=== PATIENT | female | born 1965 | race Caucasian/White ===

== ENCOUNTER 2023-10-30 09:34 | Outpatient (AMB) | payer OTHER, SELFPAY ==
--- NOTE | 2023-10-30 09:42 | HO.NEPHOV ---
HPI Hypertension (Cardio) Most Recent Cardiac Tests: No Data to Display HPI Comments History of Present Illness Details I had the privilege of seeing Sherice in follow-up of her hypertension. She has been feeling well. She has been compliant with her medication. He has gained some weight. She does not have any headache, visual disturbances, chest pain, shortness of breath, proximal nocturnal dyspnea, orthopnea, pedal edema, hematuria or any side effects from her medications. She tries to be compliant with low-sodium diet. She avoids nonsteroidal anti-inflammatory medication and try to keep herself well hydrated. Her serum creatinine and potassium has been at baseline. She has not had any renal calculi for many years. [facility] Medical History (Updated 10/30/23 @ 10:12 by Andre Shanks MD) Chronic kidney disease Essential (primary) hypertension Renal stone Family History Father Hypertension Social History (Updated 10/30/23 @ 09:49 by Chantal Sparks MA) Alcohol intake: never Patient Tobacco Use Status: Never used Tobacco Vital Signs 10/30/23 09:43 Height 5 ft 3 in Weight 202 lb BMI 35.8 BP 122/86 Blood Pressure Location Lt brachial Position Sitting Pulse 80 Pulse Source Pulse Oximeter Physical Exam Vital Signs: Last Vital Signs Pulse 80 10/30/23 09:43 BP 122/86 10/30/23 09:43 BMI result Body Mass Index 35.8 Const General: comfortable and no acute distress Orientation/consciousness: patient oriented x3 HEENT Head: Yes normocephalic Mouth: Normal oral and palatal mucosa present Eyes EOM: EOMs intact bilaterally Neck Neck: Yes supple Resp Auscultation: clear to auscultation bilaterally Cardio Jugular venous distension: no JVD Rate: regular rate GI Palpation (GI): Soft to palpation Auscultation: normal bowel sounds General: Yes no CVA tenderness Back/Spine/Pelvis Back: no CVA tenderness Skin General skin exam: no rashes or lesions noted Neuro General: patient oriented x3 and moves all extremities Extrem General: Yes no pedal edema Assessment & Plan Assessment & Plan (1) Hypertension: Code(s): I10 - Essential (primary) hypertension Qualifiers: Hypertension type: primary hypertension Qualified Code(s): I10 - Essential (primary) hypertension (2) Renal stone: Code(s): N20.0 - Calculus of kidney (3) Essential (primary) hypertension: Code(s): I10 - Essential (primary) hypertension Adam Smiley has longstanding hypertension which is well controlled on current medication regimen. She is compliant. Her serum potassium and renal functions are normal. She is not known to have any proteinuria, retinopathy or known vascular disease. She needs to lose some weight and should continue lifestyle modifications. She avoids nonsteroidal anti-inflammatory medications and maintains good hydration. She has not had any renal calculi. If she has to have renal stone, I am inclined to start her on thiazides and or potassium citrate after a 24 hour urine collection. She may need a follow-up renal ultrasound to ensure she does not have any kidney stone which I shall arrange in her subsequent visits in a year's time. I answered all questions. Follow-up urine studies and blood work ordered and follow-up given. Orders: Orders Creatinine 10/30/23 I10 - Essential (primary) hypertension, N20.0 - Calculus of kidney Electrolytes 10/30/23 I10 - Essential (primary) hypertension, N20.0 - Calculus of kidney Protein Creatinine Ratio, Ur 10/30/23 I10 - Essential (primary) hypertension, N20.0 - Calculus of kidney Blood Urea Nitrogen 10/30/23 I10 - Essential (primary) hypertension, N20.0 - Calculus of kidney Coding Level of Care Code Est Pt Level 4 (53218) Diagnoses Primary hypertension I10 Hypertension type: primary hypertension Renal stone N20.0 Essential (primary) hypertension I10 Results Reviewed Nephrology Results: No Data to Display
[2023-10-30 09:43] VITALS: BP 122/86; PULSE 80; BMI 35.8
== END 2023-10-30 10:18 | disposition home or self-care (01) ==
PROVIDERS: PCP Family Medicine; Visit Provider Internal Medicine Nephrology
DX: I10 Essential (primary) hypertension (principal); N20.0 Calculus of kidney
CPT/HCPCS: 99214

== ENCOUNTER → 2023-10-30 09:34 | Outpatient (BNVA) | payer OTHER, SELFPAY | PROVIDERS: PCP Family Medicine; Visit Provider Internal Medicine Nephrology ==

== ENCOUNTER 2024-11-06 14:12 | Outpatient (AMB) | payer OTHER, SELFPAY ==
--- NOTE | 2024-11-06 14:25 | HO.NEPHOV_ITS ---
Vital Signs 11/06/24 14:26 Height 5 ft 4 in Weight 215 lb BMI 36.9 BP 150/90 H Blood Pressure Location Lt brachial Position Sitting Pulse 76 Pulse Source Pulse Oximeter Pulse Oximetry (%) 95 Oxygen Delivery Method Room Air Intake Visit Reasons: 1Y follow up Patient Relations Coordinator Required: No Accompanied by: Self / Same As Patient Allergies No Known Allergies Allergy (Verified 11/06/24 14:27) HPI Comments Details: Sherice was seen in follow-up of her hypertension. She has been feeling well. She has been compliant with her medication. She does not have any headache, visual disturbances, chest pain, shortness of breath, proximal nocturnal dyspnea, orthopnea, pedal edema, hematuria or any side effects from her medications. She tries to be compliant with low-sodium diet. She avoids nonsteroidal anti-inflammatory medication and try to keep herself well hydrated. Her serum creatinine and potassium has been at baseline. She has not had any renal calculi for many years. [facility] Medical History (Updated 10/30/23 @ 10:12 by Andre Shanks MD) Chronic kidney disease Essential (primary) hypertension Renal stone Family History Father Hypertension Social History Alcohol intake: never Patient Tobacco Use Status: Never used Tobacco Review of Systems Const All systems reviewed & are unremarkable except as noted in HPI and below Physical Exam Vital Signs: Last Vital Signs Pulse 76 11/06/24 14:26 BP 154/100 H 11/06/24 14:26 Pulse Ox 95 11/06/24 14:26 Oxygen Delivery Method Room Air 11/06/24 14:26 BMI result Body Mass Index 36.9 Const General: comfortable and no acute distress Orientation/consciousness: patient oriented x3 HEENT Head: Yes normocephalic Mouth: Normal oral and palatal mucosa present Eyes EOM: EOMs intact bilaterally Neck Neck: Yes supple Resp Auscultation: clear to auscultation bilaterally Cardio Jugular venous distension: no JVD Rate: regular rate GI Palpation (GI): Soft to palpation Auscultation: normal bowel sounds General: Yes no CVA tenderness Back/Spine/Pelvis Back: no CVA tenderness Skin General skin exam: no rashes or lesions noted Neuro General: patient oriented x3 and moves all extremities Extrem General: Yes no pedal edema Results Reviewed Nephrology Results: No Data to Display Assessment & Plan Assessment & Plan (1) Essential (primary) hypertension: Code(s): I10 - Essential (primary) hypertension Category: Medical (2) Renal stone: Code(s): N20.0 - Calculus of kidney Category: Medical Plan Sherice has longstanding hypertension which is not well controlled on current medication regimen. She is compliant. Her serum potassium and renal functions are normal. She is not known to have any proteinuria, retinopathy or known vascular disease. She needs to lose some weight and should continue lifestyle modifications. She avoids nonsteroidal anti-inflammatory medications and maintains good hydration. She has not had any renal calculi. I increased her losartan to 100 mg and C/W current dose of metoprolol. If she has to have renal stone, I am inclined to start her on thiazides and or potassium citrate after a 24 hour urine collection. She may need a follow-up renal ultrasound to ensure she does not have any kidney stone which I shall arrange in her subsequent v isits in a year's time. I answered all questions. Follow-up urine studies and blood work ordered and follow-up given. Medications: Changed From losartan 50 mg PO BEDTIME 90 tabs 4RF To losartan 100 mg (2 x 50 mg) PO BEDTIME 90 days 180 tabs 4RF Coding Level of Care Code Est Pt Level 4 (89934) Diagnoses Essential (primary) hypertension I10 Renal stone N20.0
[2024-11-06 14:26] VITALS: BP 150/90; PULSE 76; O2SAT 95; BMI 36.9
== END 2024-11-06 14:54 | disposition home or self-care (01) ==
PROVIDERS: PCP Family Medicine; Visit Provider Internal Medicine Nephrology
DX: I10 Essential (primary) hypertension (principal); N20.0 Calculus of kidney
CPT/HCPCS: 99214

== ENCOUNTER 2025-03-12 09:14 | Outpatient (REF) | payer OTHER, SELFPAY ==
--- OUTSIDE RECORDS SUMMARY | 2025-03-12 10:48 | XMS_ITS | Clinical Summary ---
Author Organization [facility] Facility Address [address] [address] Care Team Providers Care Assembler Arranger Name Role Phone Case, Gary Orlando BARRERA Primary Care Provider [phone] Medications metoprolol succinate XL (TOPROL-XL) 50 MG [...] patient's age to complete this topic Insurance [facility] Care Teams Assembler Arranger Relationship Specialty Start Date End Date Elia Case DO [address] [place] [address] PCP - General 11/29/20
[2025-03-12 18:09] LABS: Anion Gap 12 (12-20); Blood Urea Nitrogen 21 mg/dL (9-16); Carbon Dioxide 25 mmol/L (22-29); Chloride 107 mmol/L (96-108); Estimated Glomerular Filt Rate > 60; Potassium 4.9 mmol/L (3.3-5.1); Sodium 139 mmol/L (135-145)
== END 2025-03-12 09:15 | disposition home or self-care (01) ==
LOC: HO.HKASLDS 09:14
PROVIDERS: PCP Family Medicine; Visit Provider Internal Medicine Nephrology
DX: I10 Essential (primary) hypertension (principal)
CPT/HCPCS: 36415; 80051; 82565; 84520

== ENCOUNTER 2025-03-12 09:14 | Outpatient (AMB) | payer OTHER, SELFPAY ==
--- NOTE | 2025-03-12 09:19 | HO.NEPHOV_ITS ---
Vital Signs 03/12/25 09:20 Height 5 ft 4 in Weight 219 lb BMI 37.6 BP 130/84 Blood Pressure Location Rt brachial Position Sitting Pulse 76 Pulse Source Pulse Oximeter Pulse Oximetry (%) 96 Oxygen Delivery Method Room Air Intake Visit Reasons: 3mon follow up w/labs Chemistry Intern Required: No Accompanied by: Self / Same As Patient Allergies No Known Allergies Allergy (Verified 03/12/25 09:20) HPI Comments Details: Sherice was seen in follow-up of her hypertension. She has been feeling well. She has been compliant with her medication. She does not have any headache, visual disturbances, chest pain, shortness of breath, proximal nocturnal dyspnea, orthopnea, pedal edema, hematuria or any side effects from her medications. She tries to be compliant with low-sodium diet. She avoids nonsteroidal anti-inflammatory medication and try to keep herself well hydrated. Her serum creatinine and potassium has been at baseline. She has not had any renal calculi for many years. [facility] Medical History (Updated 10/30/23 @ 10:12 by Andre Shanks MD) Chronic kidney disease Essential (primary) hypertension Renal stone Family History Father Hypertension Social History Alcohol intake: never Patient Tobacco Use Status: Never used Tobacco Review of Systems Const All systems reviewed & are unremarkable except as noted in HPI and below Physical Exam Const General: comfortable and no acute distress Orientation/consciousness: patient oriented x3 HEENT Head: Yes normocephalic Mouth: Normal oral and palatal mucosa present Eyes EOM: EOMs intact bilaterally Neck Neck: Yes supple Resp Auscultation: clear to auscultation bilaterally Cardio Jugular venous distension: no JVD Rate: regular rate GI Palpation (GI): Soft to palpation Auscultation: normal bowel sounds General: Yes no CVA tenderness Back/Spine/Pelvis Back: no CVA tenderness Skin General skin exam: no rashes or lesions noted Neuro General: patient oriented x3 and moves all extremities Extrem General: Yes no pedal edema Results Reviewed Nephrology Results: No Data to Display Assessment & Plan Assessment & Plan (1) Essential (primary) hypertension: Code(s): I10 - Essential (primary) hypertension Category: Medical (2) Renal stone: Code(s): N20.0 - Calculus of kidney Category: Medical Plan Sherice has longstanding hypertension which is not well controlled on current medication regimen. She is compliant with medications. Her serum potassium and renal functions are normal. She is not known to have any proteinuria, retinopathy or known vascular disease. She needs to lose some weight and should continue lifestyle modifications. She avoids nonsteroidal anti-inflammatory medications and maintains good hydration. She has not had any renal calculi. I increased her losartan to 100 mg and C/W current dose of metoprolol which is keeping her BP at goal. If she has to have renal stone, I am inclined to start her on thiazides and or potassium citrate after a 24 hour urine collection. She may need a follow-up renal ultrasound to ensure she does not have any kidney stone which I shall arrange in her subsequent visits in a year's time. Follow- up urine studies and blood work ordered and follow-up given. Orders: Orders Electrolytes Today I10 - Essential (primary) hypertension Blood Urea Nitrogen Today I10 - Essential (primary) hypertension Creatinine Today I10 - Essential (primary) hypertension Coding Level of Care Code Est Pt Level 4 (60754) Diagnoses Essential (primary) hypertension I10 Renal stone N20.0
[2025-03-12 09:20] VITALS: BP 130/84; PULSE 76; O2SAT 96; BMI 37.6
--- OUTSIDE RECORDS SUMMARY | 2025-03-12 10:00 | XMS_ITS | Clinical Summary ---
Author Organization [facility] Facility Address [address] [address] Care Team Providers Care Professor Of Poultry Science Name Role Phone Case, Gary Orlando BARRERA Primary Care Provider [phone] Medications metoprolol succinate XL (TOPROL-XL) 50 MG 24 hr tablet Take 1.5 tablets by mouth 1 (one) time each day Active losartan (COZAAR) 50 MG tablet TAKE ONE TABLET BY MOUTH AT BEDTIME 90 tablet 08/21/2023 Active Active Problems Problem Noted Date Diagnosed Date Chronic kidney disease stage 1 01/13/2021 Essential hypertension 01/13/2021 Hypertensive renal disease 01/13/2021 Renal stone 01/13/2021 Family History Medical History Relation Comments Hypertension Father Relation Status Comments Father Mother Alive Social History Tobacco Use Types Packs/Day Years Used Date Smoking Tobacco: Never Smokeless Tobacco: Never Alcohol Use Standard Drinks/Week Comments Yes 0 (1 standard drink = 0.6 oz pure alcohol) Alcoholic Drinks/day: Occasional social drink Comments Unknown Sex and Gender Information Value Date Recorded Sex Assigned at Not on file Legal Sex Female 5:24 PM EST Gender Identity Not on file Sexual Orientation Not on file Last Filed Vital Signs Vital Sign Reading Time Taken Comments Blood Pressure 120/80 12/25/2019 12:01 PM EST Pulse 72 12/25/2019 12:01 PM EST Temperature - - Respiratory Rate - - Oxygen Saturation 99% 06/23/2019 12:01 PM EDT Inhaled Oxygen Concentration - - Weight 101 kg (223 lb) 12/25/2019 12:01 PM EST Height 162.6 cm (5' 4 ) 12/25/2019 12:01 PM EST Body Mass Index 38.28 12/25/2019 12:01 PM EST Plan of Treatment Health Maintenance Due Date Last Done Comments Breast Cancer Screening 1965 Pneumococcal Vaccine: 50+ Ye ars (1 of 2 - PCV) 1982 Colorectal Cancer Screening: Annual FOBT 2012 Colorectal Cancer Screening: Colonoscopy 2012 Colorectal Cancer Screening: Sigmoidoscopy 2012 Influenza Vaccine (Season Ended) 2025 Hepatitis B Vaccine Aged Out No longe r eligible based on patient's age to complete this topic Insurance [facility] Care Teams Professor Of Poultry Science Relationship Specialty Start Date End Date Elia Case DO [address] [place] [address] PCP - General 11/29/20
== END 2025-03-12 12:59 | disposition home or self-care (01) ==
PROVIDERS: PCP Family Medicine; Visit Provider Internal Medicine Nephrology
DX: I10 Essential (primary) hypertension (principal); N20.0 Calculus of kidney
CPT/HCPCS: 99214

== ENCOUNTER 2025-09-03 15:46 | Outpatient (AMB) | payer OTHER, SELFPAY ==
--- NOTE | 2025-09-03 16:19 | HO.NEPHOV_ITS ---
Vital Signs 09/03/25 16:22 Height 5 ft 4 in Weight 220 lb BMI 37.8 BP 132/80 Blood Pressure Location Lt brachial Position Sitting Pulse 85 Pulse Source Pulse Oximeter Pulse Oximetry (%) 96 Oxygen Delivery Method Room Air Intake Visit Reasons: 6mon [id number] Opal Polisher Required: No Accompanied by: Self / Same As Patient Allergies No Known Allergies Allergy (Verified 09/03/25 16:22) HPI Comments Details: Sherice was seen in follow-up of her hypertension. She has been compliant with her medication. She does not have any headache, visual disturbances, chest pain, shortness of breath, proximal nocturnal dyspnea, orthopnea, pedal edema, hematuria or any side effects from her medications. She tries to be compliant with low-sodium diet. She avoids nonsteroidal anti-inflammatory medication and try to keep herself well hydrated. Her serum creatinine and potassium has been at baseline. She has not had any renal calculi for many years but lately has been having right flank pain. COUNT [facility]CLUDES [facility] Medical History (Updated 09/03/25 @ 20:50 by Andre Shanks MD) Chronic kidney disease Essential (primary) hypertension Renal stone Family History Father Hypertension Social History Alcohol intake: never Patient Tobacco Use Status: Never used Tobacco Review of Systems Const All systems reviewed & are unremarkable except as noted in HPI and below Physical Exam Vital Signs: Last Vital Signs Pulse 85 09/03/25 16:22 BP 132/80 09/03/25 16:22 Pulse Ox 96 09/03/25 16:22 Oxygen Delivery Method Room Air 09/03/25 16:22 BMI result Body Mass Index 37.8 Const General: comfortable and no acute distress Orientation/consciousness: patient oriented x3 HEENT Head: Yes normocephalic Mouth: Normal oral and palatal mucosa present Eyes EOM: EOMs intact bilaterally Neck Neck: Yes supple Resp Auscultation: clear to auscultation bilaterally Cardio Jugular venous distension: no JVD Rate: regular rate GI Palpation (GI): Soft to palpation Auscultation: normal bowel sounds General: Yes no CVA tenderness Back/Spine/Pelvis Back: no CVA tenderness Skin General skin exam: no rashes or lesions noted Neuro General: patient oriented x3 and moves all extremities Extrem General: Yes no pedal edema Assessment & Plan Assessment & Plan (1) Renal stone: Code(s): N20.0 - Calculus of kidney Category: Medical (2) Essential (primary) hypertension: Code(s): I10 - Essential (primary) hypertension Category: Medical (3) Flank pain: Code(s): R10.A0 - Flank pain, unspecified side Category: Medical Qualifiers: Laterality: right Qualified Code(s): R10.A1 - Flank pain, right side Plan Sherice has longstanding hypertension which is not well controlled on current medication regimen. She is compliant with medications. Her serum potassium and renal functions had been normal. She is not known to have any proteinuria, retinopathy or known vascular disease. She needs to lose some weight and should continue lifestyle modifications. She avoids nonsteroidal anti-inflammatory medications and maintains good hydration. She has not had any renal calculi but given right flank pain, I ordered a renal USS . She should continue current dose of losartan and metoprolol which is keeping her BP at goal. If she has to have renal stone, I am inclined to start her on thiazides and or potassium citrate after a 24 hour urine collection. Follow-up blood work ordered and follow-up given. Orders: Orders Blood Urea Nitrogen 1 Year I10 - Essential (primary) hypertension, N20.0 - Calculus of kidney US renal BI 2 Weeks R10.A0 - Flank pain, unspecified side Creatinine 1 Year I10 - Essential (primary) hypertension, N20.0 - Calculus of kidney Electrolytes 1 Year I10 - Essential (primary) hypertension, N20.0 - Calculus of kidney Coding Level of Care Code Est Pt Level 4 (61471) Diagnoses Renal stone N20.0 Essential (primary) hypertension I10 Right flank pain R10.A1 Laterality: right
[2025-09-03 16:22] VITALS: BP 132/80; PULSE 85; O2SAT 96; BMI 37.8
--- OUTSIDE RECORDS SUMMARY | 2025-09-03 19:28 | XMS_ITS | Clinical Summary ---
Author Organization [facility] Address [address] [place] [address] Phone Care Team Providers Care Amf Mechanic Name Role Phone Elia Case DO Primary Care Provider [phone] Allergies No known active allergies Medications losartan (COZAAR) 50 mg tablet Take 1 tablet (50 mg total) by mouth 1 (one) time each day. Active SUMAtriptan (IMITREX) 50 mg tablet Take 1 tablet (50 mg total) by mouth 1 (one) time if needed for migraine. May repeat dose once in 2 hours if no relief. Do not exceed 2 doses in 24 hours. Active polyethylene glycol (Golytely) 236-22.74-6.74 -5.86 gram solution Take 4L by mouth once for one dose. May substitue any PEG. Starting at 2PM the day before your procedure drink 1 8oz glasses at your own pace until you complete half of the gallon. Finish 2nd half of the gallon at 8PM. 4000 mL 5 Active bisacodyL (DULCOLAX) 5 mg EC tablet Take 2 tablets by mouth right before beginning bowel prep. See instructions provided by the office 2 tablet 5 Active metoprolol succinate (TOPROL-XL) 50 mg 24 hr tablet 5 Active omega 9-pyu-enk-fish oil (Fish OiL) 1,000 (120-180) mg capsule Active multivitamin tablet Take 1 tablet by mouth 1 (one) time each day. Active Encounters Date Type Department Care Team Description 06/10/2025 Telephone Gastroenterology - [address] [phone] Deborahdonovanslaazar ZainaRAFITA 06/09/2025 7:43 AM EDT Anesthesia Event [facility] [address] [place] [phone] Eliot Ortega MD 06/09/2025 6:53 AM EDT - 06/09/2025 11:59 PM EDT Hospital Encounter [facility] [address] [place] [phone] Jenna Keith MD Elliott, Barbara J, CRNA Colon cancer screening Discharge Disposition: Home or Self Care from Last 3 Months Surgical History Surgery Date Site/Laterality Comments TUBAL LIGATION COLONOSCOPY Medical History Medical History Date Comments Malignant neoplasm of skin of face ? DX:Malignant neoplasm of skin of face; COMMENT: Right forearm Hypertension Migraines Family History Medical History Relation Name Comments Basal cell carcinoma Father Basal cell carcinoma Sister Relation Name Status Comments Father Sister Social History Tobacco Use Types Packs/Day Years Used Date Smoking Tobacco: Never Smokeless Tobacco: Never Alcohol Use Standard Drinks/Week Comments Yes 0 (1 standard drink = 0.6 oz pur e alcohol) Interpersonal Safety Answer Date Record ed Physical Abuse Unrecognized value 06/09/2025 Verbal Abuse Unrecognized value 06/09/2025 Comments No Sex and Gender Information Value Date Recorded Sex Assigned at Not on file Legal Sex Female 11:25 PM EST Gender Identity Not on file Sexual Orientation Not on file Obstetrics History Last Filed Vital Signs Vital Sign Reading Time Taken Comments Blood Pressure 109/63 06/09/2025 8:28 AM EDT Pulse 74 06/09/2025 8:28 AM EDT Temperature 36.8 C (98.3 F) 06/09/2025 8:08 AM EDT Respiratory Rate 14 06/09/2025 8:28 AM EDT Oxygen Saturation 96% 06/09/2025 8:28 AM EDT Inhaled Oxygen Concentration - - Weight 99.8 kg (220 lb) 06/09/2025 7:21 AM EDT Height 162.6 cm (5' 4 ) 06/09/2025 7:21 AM EDT Body Mass Index 37.76 06/09/2025 7:21 AM EDT Plan of Treatment Health Maintenance Due Date Last Done Comments Breast Cancer Screening 1965 Zoster Vaccines (1 of 2) 1982 Cervical Cancer Screening: P ap Smear 1984 Pneumococcal Vaccine: 50+ Years (1 of 1 - PCV) 2013 COVID-19 Vaccine (3 - Modern a risk series) 03/24/2021 02/24/2021, 01/26/2021 Depression Screening 11/19/2024 Cholesterol Screening (Lipid Panel) 03/13/2025 HIV Screening 03/13/2025 Hepatitis C Screening 03/13/2025 Hypertension/CHF/CAD Annual BMP Blood Test 03/13/2025 Social Influencers of Health Screening 03/13/2025 Influenza Vaccine (#1) 2025 DTaP,Tdap,and Td Vaccines (2 - Td or Tdap) 07/20/2032 07/20/2022 Colorectal Cancer Screening: Colonoscopy 06/09/2035 06/09/2025 RSV Immunization Adult Patients (1 - 1-dose 75+ series) 2038 HIB Vaccines Aged Out No longer eligi ble based on patient's age to complete this topic HPV Vaccines Aged Out No longer eligi ble based on patient's age to complete this topic Hepatitis A Vaccines Aged Out No long er eligible based on patient's age to complete this topic Hepatitis B Vaccines Aged Out No long er eligible based on patient's age to complete this topic IPV Vaccines Aged Out No longer eligi ble based on patient's age to complete this topic MMR Vaccines Aged Out No longer eligi ble based on patient's age to complete this topic Meningococcal ACWY Vaccine Aged Out N o longer eligible based on patient's age to complete this topic Meningococcal B Vaccine Aged Out No l onger eligible based on patient's age to complete this topic RSV Immunization Patients Under 20 months Aged Out No longer eligible b ased on patient's age to complete this topic Varicella Vaccines Aged Out No longer eligible based on patient's age to complete this topic Procedures Procedure Name Priority Date/Time Associated Diagnosis Comments COLONOSCOPY Routine 06/09/2025 8:07 AM EDT Colon cancer screening TISSUE EXAM Routine 06/09/2025 8:05 AM EDT Colon cancer screening from Last 3 Months Results * COLONOSCOPY Anesthesia - MAC; [facility] ENDOSCOPY (06/09/2025 8:07 AM EDT) Anatomical Region Laterality Modality Other 06/09/2025 7:31 AM EDT Impressions 06/09/2025 8:07 AM EDT - The examined portion of the ileum was normal. - Diverticulosis in the sigmoid colon. - One 2 mm polyp in the rectum, removed with a cold snare. Resected and retrieved. - The examination was otherwise normal on direct and retroflexion views. Recommendation: - Await pathology results. - Repeat colonoscopy in 7-10 years for surveillance based on pathology results. Narrative 06/09/2025 8:07 AM EDT [facility] Patient Name: Sherice Petersen Procedure Date: 06/09/2025 7:31 AM Date of : 1965 Age: 59 Gender: Female Note Status: Finalized Attending MD: Jenna Keith MD, Procedure Date No Time: 06/09/2025 Procedure: Colonoscopy Indications: Screening for colorectal malignant neoplasm Providers: Jenna Keith MD Referring MD: Elia Case MD Medicines: Propofol per Anesthesia Complications: No immediate complications. Estimated Blood Loss: Estimated blood loss: none. Procedure: Pre-Anesthesia Assessment: - ASA Grade Assessment: II - A patient with mild systemic disease. After I obtained informed consent, the scope was passed under direct vision. Throughout the procedure, the patient's blood pressure, pulse, and oxygen saturations were monitored continuously.The Colonoscope was introduced through the anus and advanced to the terminal ileum. The colonoscopy was somewhat difficult due to restricted mobility of the colon. The patient tolerated the procedure well. The quality of the bowel preparation was excellent. Findings: The perianal and digital rectal examinations were normal. The terminal ileum appeared normal. A few small-mouthed diverticula were found in the sigmoid colon. A 2 mm polyp was found in the rectum. The polyp was sessile. The polyp was removed with a cold snare. Resection and retrieval were complete. The exam was otherwise without abnormality on direct and retroflexion views. Procedure Code(s): --- Professional --- 41450, Colonoscopy, flexible; with removal of tumor(s), polyp(s), or other lesion(s) by snare technique Diagnosis Code(s): --- Professional --- Z12.11, Encounter for screening for malignant neoplasm of colon D12.8, Benign neoplasm of rectum CPT copyright 2020 [employer] [place] [employer]. All rights reserved. The codes documented in this report are preliminary and upon physician coder review may be revised to meet current compliance requirements. Jenna Keith MD 06/09/2025 8:07:30 AM This report has been signed electronically.Jenna Keith MD Number of Addenda: 0 Note Initiated On: 06/09/2025 7:31 AM Scope In: Scope Out: Endoscopy Department at [facility] - [address] [place] [phone] Procedure Note Jenna Keith MD - 06/09/2025 [facility] Patient Name: Sherice Petersen Procedure Date: 06/09/2025 7:31 AM Date of : 1965 Age: 59 Gender: Female Note Status: Finalized Attending MD: Jenna Keith MD, Procedure Date No Time: 06/09/2025 Procedure: Colonoscopy Indications: Screening for colorectal malignant neoplasm Providers: Jenna Keith MD Referring MD: Elia Case MD Medicines: Propofol per Anesthesia Complications: No immediate complications. Estimated Blood Loss: Estimated blood loss: none. Procedure: Pre-Anesthesia Assessment: - ASA Grade Assessment: II - A patient with mild systemic disease. After I obtained informed consent, the scope was passed under direct vision. Throughout theprocedure, the patient's blood pressure, pulse, and oxygen saturations were monitored continuously.The Colonoscope was introduced through the anus and advanced to the terminal ileum. The colonoscopy was somewhat difficult due to restricted mobility ofthe colon. The patient tolerated the procedure well.The quality of the bowel preparation was excellent. Findings: The perianal and digital rectal examinations were normal. The terminal ileum appeared normal. A few small-mouthed diverticula were found in the sigmoid colon. A 2 mm polyp was found in the rectum. The polyp was sessile. The polyp was removed with a cold snare. Resection and retrieval were complete. The exam was otherwise without abnormality ondirect and retroflexion views. Procedure Code(s): --- Professional --- 41663, Colonoscopy, flexible; with removal of tumor(s), polyp(s), or other lesion(s) by snare technique Diagnosis Code(s): --- Professional --- Z12.11, Encounter for screening for malignantneoplasm of colon D12.8, Benign neoplasm of rectum CPT copyright 2020 [employer] [place] [employer]. All rights reserved. The codes documented in this report are preliminary and upon physician coder reviewmay be revised to meet current compliance requirements. Jenna Keith MD 06/09/2025 8:07:30 AM This report has been signed electronically.Jenna Keith MD Number of Addenda: 0 Note Initiated On: 06/09/2025 7:31 AM Scope In: Scope Out: Endoscopy Department at [facility] - [address] [place] [phone] IMPRESSION: - The examined portion of the ileum was normal. - Diverticulosis in the sigmoid colon. - One 2 mm polyp in the rectum, removed with a cold snare. Resected and retrieved. - The examination was otherwise normal on directand retroflexion views. Recommendation: - Await pathology results. - Repeat colonoscopy in 7-10 years for surveillance based on pathology results. Jenna Keith MD GI~PROCEDURE ORDERABLES Final Result * Tissue exam (06/09/2025 8:05 AM EDT) Final Diagnosis Polyp, rectum, polypectomy: - Hyperplastic polyp. 06/10/2025 10:09 AM EDT [facility] Gross Description A. Large Intestine, Rectum, polyp: Labeled polyp in LI rectum . Received in formalin is a soft, arias, thin, 0.4 cm in greatest diameter slightly polypoid tissue which is inked blue at the base, wrapped in paper and submitted in toto in one cassette, one piece, multiple levels. TS 06/10/2025 10:09 AM EDT [facility] Disclaimer Unless otherwise specified, all tissue is 10% NB formalin fixed and paraffin embedded. 06/10/2025 10:09 AM EDT [facility] ([facility]) [facility] Tissue Rectum structure / Unknown 06/09/2025 8:05 AM EDT 06/09/2025 9:37 AM EDT us Jenna Keith MD LAB PATHOLOGY ORDERABLES Final Result [facility] ([facility]) [facility] [address] [place] [address], from Last 3 Months Insurance [facility] Care Teams Amf Mechanic Relationship Specialty Start Date End Date Elia Case DO [address] [place] [id number] PCP - General Family Medicine 03/13/25
== END 2025-09-03 16:35 | disposition home or self-care (01) ==
LOC: HO.HKAS 15:47
PROVIDERS: PCP Family Medicine; Visit Provider Internal Medicine Nephrology
DX: N20.0 Calculus of kidney (principal); I10 Essential (primary) hypertension; R10.A1 Flank pain, right side
CPT/HCPCS: 99214

== ENCOUNTER 2025-09-25 09:28 | Outpatient (REF) | payer OTHER, SELFPAY ==
--- NOTE | ~2025-09-25 | US_ITS ---
CLINICAL HISTORY: R10.A0 - Flank pain, unspecified side US kidneys Comparison: None Findings: Right kidney normal size and echotexture, 9.4 cm length. There may be mild fullness of the collecting system or small parapelvic cysts. Otherwise no sandro hydronephrosis. Normal color flow. A nonshadowing interpolar echogenic lesion or focus measuring up to 6 mm is nonspecific, possible small angiomyolipoma. Left kidney normal size and echotexture, 10.2 cm length. There may be mild fullness of the collecting system or small parapelvic cysts. Otherwise no sandro hydronephrosis. Normal color flow. Impression: 1. Possible mild fullness of the bilateral collecting systems, versus small parapelvic cysts. 2. 6 mm nonshadowing echogenic focus within interpolar right kidney is nonspecific, possible small angiomyolipoma. This document has been electronically signed by: Rajiv Mendez MD on 09/26/2025 16:35:44
--- OUTSIDE RECORDS SUMMARY | 2025-09-25 10:44 | XMS_ITS | Clinical Summary ---
Author Organization [facility] Facility Address [address] [address] Care Team Providers Care Office Support Name Role Phone Case, Gary Orlando BARRERA Primary Care Provider [phone] Medications metoprolol succinate XL (TOPROL-XL) 50 MG [...] Colorectal Cancer Screening: Sigmoidoscopy 2012 Influenza Vaccine (#1) 2025 Hepatitis B Vaccine Aged Out No longe r eligible based on patient's age to complete this topic Insurance [facility] Care Teams Office Support Relationship Specialty Start Date End Date Elia Case DO [address] [place] [address] PCP - General 11/29/20
--- OUTSIDE RECORDS SUMMARY | 2025-09-25 10:44 | XMS_ITS | Clinical Summary ---
Author Organization 175 [facility] Address [address] [place] [address] Phone Care Team Providers Care Half Backer Name Role Phone Elia Case DO Primary Care Provider [phone] Allergies No known active allergies Medications losartan [...] mg 24 hr tablet 5 Active omega 5-sbd-lha-fish oil (Fish OiL) 1,000 (120-180) mg capsule Active multivitamin tablet Take 1 tablet by mouth 1 (one) time each day. Active Surgical History Surgery Date Site/Laterality Comments TUBAL [...] 06/09/2025 8:07 AM EDT Colon cancer screening from Last 3 Months or Most Recently Relevant to Health Maintenance Results * COLONOSCOPY Anesthesia - MAC; [facility] ENDOSCOPY (06/09/2025 8:07 AM EDT) Anatomical Region [...] pathology results. Narrative 06/09/2025 8:07 AM EDT [facility] Patient Name: Sherice Cardona Procedure Date: 06/09/2025 7:31 AM Date of [...] retroflexion views. Procedure Code(s): --- Professional --- 69851, Colonoscopy, flexible; with removal of tumor(s), polyp(s), or other lesion(s) by snare technique Diagnosis Code(s): --- Professional --- Z12.11, Encounter for screening for malignant neoplasm of colon D12.8, Benign neoplasm of rectum CPT copyright 2020 [employer]. All rights reserved. The codes documented in this report are preliminary and upon outside event sales specialist review may be revised to meet current compliance requirements. Jenna Keith MD 06/09/2025 8:07:30 AM This report has been signed electronically.Jenna Keith MD Number of Addenda: 0 Note Initiated On: 06/09/2025 7:31 AM Scope In: Scope Out: Endoscopy Department at [facility] - [address] [place] [phone] Procedure Note Jenna Keith MD - 06/09/2025 [facility] Patient Name: Sherice Cardona Procedure Date: 06/09/2025 7:31 AM Date of [...] retroflexion views. Procedure Code(s): --- Professional --- 01170, Colonoscopy, flexible; with removal of tumor(s), polyp(s), or other lesion(s) by snare technique Diagnosis Code(s): --- Professional --- Z12.11, Encounter for screening for malignantneoplasm of colon D12.8, Benign neoplasm of rectum CPT copyright 2020 [employer]. All rights reserved. The codes documented in this report are preliminary and upon outside event sales specialist reviewmay be revised to meet current compliance requirements. Jenna Keith MD 06/09/2025 8:07:30 AM This report has been signed electronically.Jenna Keith MD Number of Addenda: 0 Note Initiated On: 06/09/2025 7:31 AM Scope In: Scope Out: Endoscopy Department at [facility] - [address] [place] [phone] IMPRESSION: - The examined portion of the ileum was normal. - Diverticulosis in the sigmoid colon. - One 2 mm polyp in the rectum, removed with a cold snare. Resected and retrieved. - The examination was otherwise normal on directand retroflexion views. Recommendation: - Await pathology results. - Repeat colonoscopy in 7-10 years for surveillance based on pathology results. us Jenna Keith MD GI~PROCEDURE ORDERABLES Final Result from Last 3 Months or Most Recently Relevant to Health Maintenance Insurance [facility] Care Teams Half Backer Relationship Specialty Start Date End Date Elia Case DO [address] [place] [phone] PCP - General Family Medicine 03/13/25
== END 2025-09-25 09:29 | disposition home or self-care (01) ==
LOC: HO.HMGCX 09:28
PROVIDERS: Visit Provider Internal Medicine Nephrology
DX: R10.A0 Flank pain, unspecified side (principal)
CPT/HCPCS: 76775

== ENCOUNTER → 2025-09-25 09:31 | Outpatient (BNV) | payer OTHER, SELFPAY | PROVIDERS: Visit Provider Radiology Diagnostic Radiology | DX: R10.A0 Flank pain, unspecified side (principal) | CPT/HCPCS: 76775 ==